=== PATIENT | female | born 1985 | race African-American/Black ===

== ENCOUNTER 2018-05-02 13:25 | Emergency (ER) | payer OTHER ==
[~2018-05-02] VITALS: Ht 152.4 cm; Wt 90.7 kg
[2018-05-02 14:50] LABS: BASOPHIL % 0.3 % (0-2); PLATELET COUNT 340 x10^3mcL (130-400)
[2018-05-02 14:53] LABS: CALCIUM 9.5 mg/dL (8.5-10.1); CARBON DIOXIDE 28.9 mmol/L (21-32); CHLORIDE SERUM 98 mmol/L (98-107); CREATININE SERUM 0.7 mg/dL (0.6-1.0); GFR1 > 60 mL/min; GLUCOSE SERUM 166 mg/dL (74-106); SODIUM SERUM 135 mmol/L (136-145)
[2018-05-02 14:59] LABS: ALBUMIN 3.6 g/dL (3.4-5.0); ALKALINE PHOSPHATASE 90 U/L (46-116); ALT/SGPT 58 U/L (14-59); AST/SGOT 39 U/L (15-37); BILIRUBIN TOTAL 0.4 mg/dL (0.20-1.00)
[2018-05-02 15:06] LABS: AMPHETAMINE QUAL UR NONE DETECTED (See below)
[2018-05-02 15:14] LABS: TOTAL PROTEIN, SERUM 8.5 g/dL (6.4-8.2)
[2018-05-02 16:26] VITALS: BP 148/89
== END 2018-05-02 16:26 | disposition home or self-care (01) ==
LOC: ED 13:25
PROVIDERS: Emergency Medicine
DX: R56.9 Unspecified convulsions (principal); J45.909 Unspecified asthma, uncomplicated; I10 Essential (primary) hypertension
CPT/HCPCS: 36415